=== PATIENT | female | born 1990 | race Caucasian/White ===

== ENCOUNTER 2018-10-28 03:08 | Emergency (ER) | payer MEDICAID | END 2018-10-28 07:08 | disposition home or self-care (01) | LOC: FTE 03:08 | DX: R21 Rash and other nonspecific skin eruption (principal) | CPT/HCPCS: 99282 ==

== ENCOUNTER 2019-05-05 17:27 | Emergency (ER) | payer MEDICAID ==
[2019-05-05] MEDS: CEPHALEXIN 500 MG CAP PO (18:36)
[2019-05-05] MEDS: KETOROLAC 30 MG INJ IM (18:36)
== END 2019-05-05 20:00 | disposition home or self-care (01) ==
LOC: FTE 17:27
DX: K08.89 Other specified disorders of teeth and supporting structures (principal)
CPT/HCPCS: 81025; 96372; 99284-25